=== PATIENT | male | born 1995 | race Hispanic/Latino ===

== ENCOUNTER 2018-11-01 05:30 | Day surgery (SDC) | payer MEDICAID ==
[~2018-11-01] VITALS: Ht 167.6 cm; Wt 49.9 kg
[~2018-11-01 05:30] MED LIST: DUCOLAX PO; FERR324T10 PO; IRON1CAP35 PO; MV-M1TAB20 PO; PANT40TA25 PO; PRED10TA3 PO; SODIUM CHLORIDE 0.9% 1000ML 1,000 ML IV ONE
[2018-11-01 06:13] VITALS: BP 112/75
[2018-11-01 07:28] LABS: BASOPHILS % (AUTO) 0.2 % (0.0-5.0); EOSINOPHILS % (AUTO) 0.2 % (0.0-8.0); HEMATOCRIT 31.4 % (42-54); LYMPHOCYTES % (AUTO) 13.3 % (21.0-51.0); MEAN CORPUSCULAR HEMOGLOBIN 26.4 pg (27.0-33.0); MEAN CORPUSCULAR HGB CONC 30.3 g/dL (32.0-36.0); MEAN CORPUSCULAR VOLUME 87.3 fL (79-99); MONOCYTES % (AUTO) 8.9 % (3.0-13.0); NEUTROPHILS % (AUTO) 77.4 % (40.0-77.0); RED CELL DISTRIBUTION WIDTH 17.5 % (11.0-15.5); WHITE BLOOD COUNT (AUTO) 12.9 K/uL (4.8-10.8)
[2018-11-01 08:16] LABS: PLATELET COUNT (AUTO) 802 K/uL (130-400)
[2018-11-01] MEDS ORDERED: PHENYLEPHRINE HCL 10 MG/ML 1ML VIAL IV ONE (08:52)
[2018-11-01] MEDS ORDERED: SODIUM CHLORIDE 0.9% 10 ML VIAL ONE (08:54)
[2018-11-01] MEDS ORDERED: PROPOFOL 10 MG/ML 20ML VIAL IV ONE (08:57)
[2018-11-01 09:07] VITALS: BP 94/76
[2018-11-01 09:10] VITALS: BP 87/51
[2018-11-01 09:16] VITALS: BP 95/66
[2018-11-01 09:21] VITALS: BP 100/73
[2018-11-01 09:25] VITALS: BP 103/77
== END 2018-11-01 09:25 | disposition home or self-care (01) ==
LOC: DAH 05:30
PROVIDERS: ATTEND Internal Medicine Gastroenterology
DX: K52.89 Other specified noninfective gastroenteritis and colitis (principal); K63.89 Other specified diseases of intestine; K62.89 Other specified diseases of anus and rectum; D50.9 Iron deficiency anemia, unspecified; K92.2 Gastrointestinal hemorrhage, unspecified; E55.9 Vitamin D deficiency, unspecified; D75.9 Disease of blood and blood-forming organs, unspecified; Z79.899 Other long term (current) drug therapy
CPT/HCPCS: 36415; 45380; 85025; 88305; 93005; A4606; J2370; J2704; J7030